=== PATIENT | female | born 1930 | race African-American/Black ===

== ENCOUNTER 2016-10-25 10:25 | Outpatient (CLI) | payer MEDICARE ==
[2013-06-24 12:10] VITALS: BP 150/84
[2016-10-25 11:03] LABS: eGFR (African) > 60; eGFR (Non-African) > 60
== END 2016-10-25 12:58 ==
LOC: LAB 10:25
PROVIDERS: ATTEND Family Medicine
DX: E78.2 Mixed hyperlipidemia (principal)
CPT/HCPCS: 36415; 80053; 80061

== ENCOUNTER 2017-04-25 10:07 | Outpatient (CLI) | payer MEDICARE ==
[2013-06-24 12:10] VITALS: BP 150/84
[2017-04-25 10:55] LABS: eGFR (African) > 60; eGFR (Non-African) > 60
== END 2017-04-25 10:10 ==
LOC: LAB 10:07
PROVIDERS: ATTEND Family Medicine
DX: E83.52 Hypercalcemia (principal); E87.6 Hypokalemia
CPT/HCPCS: 36415; 80048; 83970

== ENCOUNTER 2017-06-20 09:37 | Outpatient (CLI) | payer MEDICARE ==
[2013-06-24 12:10] VITALS: BP 150/84
== END 2017-06-20 09:40 ==
LOC: LAB 09:37
PROVIDERS: ATTEND Family Medicine
DX: E83.52 Hypercalcemia (principal)
CPT/HCPCS: 36415; 82306; 82330; 83735; 83970

== ENCOUNTER 2017-07-15 10:36 | Outpatient (CLI) | payer MEDICARE ==
[2013-06-24 12:10] VITALS: BP 150/84
== END 2017-07-15 10:38 ==
LOC: LAB 10:36
PROVIDERS: ATTEND Internal Medicine
DX: E83.52 Hypercalcemia (principal)
CPT/HCPCS: 36415; 80069; 82306; 82310; 82340; 82570; 83735; 83970

== ENCOUNTER 2017-12-19 10:49 | Outpatient (CLI) | payer MEDICARE ==
[2013-06-24 12:10] VITALS: BP 150/84
== END 2017-12-19 10:50 ==
LOC: LAB 10:49
PROVIDERS: ATTEND Family Medicine
DX: E78.2 Mixed hyperlipidemia (principal)
CPT/HCPCS: 36415; 80061

== ENCOUNTER 2018-02-13 12:02 | Outpatient (CLI) | payer MEDICARE ==
[2013-06-24 12:10] VITALS: BP 150/84
== END 2018-02-13 12:04 ==
LOC: LAB 12:02
PROVIDERS: ATTEND Internal Medicine
DX: E23.1 Drug-induced hypopituitarism (principal)
CPT/HCPCS: 36415; 80069; 82306; 82310; 83735